=== PATIENT | male | born 1955 | race Caucasian/White ===

== ENCOUNTER 2023-06-17 13:18 | Outpatient (CLI) | payer OTHER, SELFPAY ==
--- NOTE | 2023-06-17 | ECHO_ITS ---
Patient Info Name: Brayden Rios Age: 67 years : 1955 Gender: Male Ht: 73 in Wt: 195 lbs BSA: 2.14 m2 HR: 87 bpm BP: 149 / 80 mmHg Technical Quality: Fair Exam Date: 06/17/2023 1:59 PM Exam Location: [facility] Patient Status: Outpatient Admit Date: 06/17/2023 Staff Ordering Physician: Annie Chamorro [employer]otation Tank Operator: Latia Bae RDCS Attending Provider: Annie Chamorro Referring Physician: Pedro Pablo JOHNSON; Exam Type: CA echo doppler color flow Study Info Indications Z13.6 - Complete two-dimensional, color flow and Doppler transthoracic echocardiogram is performed. Summary 1. Complete two-dimensional, color flow and Doppler transthoracic echocardiogram is performed. 2. Left ventricular chamber dimension is normal. 3. Left ventricular systolic function is normal, estimated at 65-70%. 4. There is mildly increased left ventricular wall thickness. 5. The left ventricular diastolic function is grade I diastolic dysfunction. 6. Right ventricular systolic function is normal. 7. There is moderate aortic valve calcification. 8. The mitral valve annulus is mildly calcified. 9. There is trace mitral valve regurgitation. 10. There is trace tricuspid valve regurgitation. Left Ventricle Left ventricular chamber dimension is normal. Left ventricular systolic function is normal, estimated at 65-70%. There is mildly increased left ventricular wall thickness. The left ventricular diastolic function is grade I diastolic dysfunction. Right Ventricle Right ventricular chamber dimension is normal. Right ventricular systolic function is normal. Left Atria Left atrial chamber dimension is normal. Right Atria Right atrial chamber dimension is normal. Atrial Septum Intact interatrial septum visualized by color flow imaging. Aortic Valve The aortic valve is trileaflet. There is no aortic valve stenosis. There is no aortic valve regurgitation. There is moderate aortic valve calcification. Pulmonic Valve The pulmonic valve is not well visualized. Mitral Valve There is trace mitral valve regurgitation. The mitral valve annulus is mildly calcified. Tricuspid Valve There is trace tricuspid valve regurgitation. Pericardium/Pleural There is no pericardial effusion. Inferior Vena Cava Normal inferior vena cava with >50% collapse upon inspiration consistent with normal right atrial pressure, 3 mmHg. Aorta The aortic root size at the sinus of Valsalva is normal. Left Ventricular Outflow Tract Name Value Normal LVOT 2D LVOT Diameter 2.1 cm LVOT Doppler LVOT Peak Gradient 7 mmHg LVOT Mean Gradient 4 mmHg LVOT VTI 25 cm LVOT VTI/AV VTI Ratio 0.7 LVOT Stroke Volume 83 ml LVOT CO 18.0 l/min LVOT CI 8.4 l/min/m2 Pulmonic Valve Name Value Normal PV Doppler
== END 2023-06-17 13:19 | disposition home or self-care (01) ==
PROVIDERS: PCP Family Medicine
DX: Z13.6 Encounter for screening for cardiovascular disorders (principal)
CPT/HCPCS: 93306

== ENCOUNTER 2023-08-18 08:31 | Outpatient (CLI) | payer OTHER, SELFPAY ==
--- NOTE | 2023-09-08 10:46 | WPDHOMESLEEP ---
Sleep Study - Home Unattended Date of Study: 08/18/23 Ordering Provider: Ozzy Baker APRN Interpreting Provider: Sheryl Murillo, DO Home Sleep Study Type: Watch PAT Height: 1.85 m Weight: 99.79 kg Body Mass Index: 29.0 Neck Circumference (inches): 16 Renner: 2 Reason for Sleep Study Snoring Sleep History The patient is a 67-year-old male with type 2 diabetes and gout that had a sleep study ordered by the pulmonary group for evaluation sleep apnea. The patient denies awakening from sleep short of breath. He denies awakening at night with heartburn, belching or cough. He rarely snores and is never loud enough others complain. He denies having trouble sleeping when he has a cold. He denies waking up gasping for air throughout the night. He denies having breathing problems at night observed by himself or others. He denies sweating excessively at night. He denies having heart palpitations or irregular heartbeats during the night. He rarely falls asleep during the day but never while driving. He denies sleep paralysis, cataplexy and hypnagogic / hypnopompic hallucinations. He denies having trouble at school or work due to sleepiness. He denies feeling afraid of going to sleep. He denies having nightmares. He frequently remembers his dreams. He occasionally has thoughts racing through his mind. He denies feeling sad or depressed. He rarely has anxiety. He rarely has muscular tension. He denies noticing parts of his body jerk. He denies kicking during the night. He denies having crawling and aching feelings in his legs but rarely has leg pain during the night. He denies grinding his teeth during sleep and denies awakening morning jaw pain. He is rarely bothered by pain during the day and rarely awakened by pain during the night. He occasionally wakes up feeling stiff in morning. He occasionally wakes up with sore or achy muscles. He occasionally wakes up with pain in the neck, spine or other joints. He goes to bed at 10:30 p.m. on both weekdays and weekends. It can take him anywhere from 10-60 minutes to fall asleep. He wakes up 1-2 times throughout the night to urinate and sometimes he is unable to fall back asleep. He wakes up at 7:45 a.m. on both weekdays and weekends. He typically gets 8-9 hours of sleep per night. He will stay in bed for 15 minutes after waking up in the morning. He currently lives with his . He denies consuming any caffeinated beverages within 2 hours of bedtime. He will occasionally exercise before bedtime. He will watch television before falling asleep. He denies taking naps in the afternoon or the evening. He drinks caffeinated tea twice per week. He denies tobacco, alcohol and recreational drug use. [facility] Past Medical History Medical History (Updated 09/08/23 @ 10:53 by Sheryl Murillo DO) Kidney stone on right side Skin cancer Type II diabetes mellitus Surgical History Surgical History H/O removal of cyst from back History of surgical removal of skin lesion Social History Social History Smoking status: Never smoker Gender identity (if verbalized by the patient): Male Medications Home Medications Medication Instructions Recorded Confirmed Type allopurinol 100 mg tablet 100 mg PO DAILY 07/19/23 07/19/23 History metformin 500 mg tablet,extended 500 mg PO BID 07/19/23 07/19/23 History release 24hr ramipril 2.5 mg capsule 2.5 mg PO DAILY 07/19/23 07/19/23 History rosuvastatin 10 mg tablet 10 mg PO DAILY 07/19/23 07/19/23 History semaglutide 2 mg/dose (8 mg/3 mL) 2 mg subcut WEEKLY 07/19/23 07/19/23 History subcutaneous pen injector (Ozempic) Sleep Procedure The sleep study was completed using [employer]ynkerT a technically adequate device with seven channels: peripheral arterial tone, actigraphy, body position, snore, respiratory moveme
[2023-09-08 10:55] VITALS: BMI 29.0
== END 2023-08-19 11:01 | disposition home or self-care (01) ==
LOC: ANHCSM 08:32
PROVIDERS: PCP Family Medicine; Visit Provider Nurse Practitioner Family
DX: G47.30 Sleep apnea, unspecified (principal); G47.9 Sleep disorder, unspecified
CPT/HCPCS: 95800